=== PATIENT | male | born 1995 | race African-American/Black ===

== ENCOUNTER 2020-01-11 13:41 | Emergency (ER) | payer SELFPAY ==
[~2020-01-11] VITALS: Ht 172.7 cm; Wt 91.0 kg
[2020-01-11 14:10] VITALS: BP 137/80
[2020-01-11] MEDS ORDERED: ALBU18HF2 IH (14:13)
== END 2020-01-11 16:16 | disposition home or self-care (01) ==
LOC: ER 13:41
DX: Z76.0 Encounter for issue of repeat prescription (principal); J45.909 Unspecified asthma, uncomplicated
CPT/HCPCS: 99283

== ENCOUNTER 2020-02-09 08:51 | Emergency (ER) | payer OTHER ==
[~2020-02-09] VITALS: Ht 172.7 cm; Wt 93.0 kg
[~2020-02-09 08:51] MED LIST: ALBU18HF2 IH
[2020-02-09 09:09] VITALS: BP 123/75
== END 2020-02-09 09:40 | disposition home or self-care (01) ==
LOC: ER 08:51
DX: J45.909 Unspecified asthma, uncomplicated (principal); Z76.0 Encounter for issue of repeat prescription
CPT/HCPCS: 99283